=== PATIENT | female | born 1965 | race Caucasian/White ===

== ENCOUNTER → 2021-07-16 09:01 | Outpatient (CLI) | payer OTHER, SELFPAY ==
[2021-07-16 18:38] LABS: Add Manual Diff / Slide Review NO; Basophils Absolute Auto 0 /uL (0-100); Basophils Percent Auto 0.2 % (0-2); Eosinophils Absolute Auto 200 /uL (0-450); Eosinophils Percent Auto 3.2 % (2-4); Hematocrit 40.6 % (36-46); Hemoglobin 13.7 g/dL (12.0-16.0); Lymphocytes Absolute Auto 1300 /uL (1100-4500); Mean Corpuscular HGB Conc 33.7 % (30-36); Mean Corpuscular Hemoglobin 28.4 PG (26-34); Mean Corpuscular Volume 84.4 fL (80-100); Monocytes Absolute Auto 300 /uL (0-900); Monocytes Percent Auto 5.2 % (3-14); Neutrophils Absolute Auto 3600 /uL (1500-7000); Neutrophils Percent Auto 67.4 % (50-75); Platelet Count 249 X10^3/uL (150-400); Red Blood Cell Count 4.81 X10^6/uL (4.0-5.2); Red Cell Distribution Width 13.8 % (11.6-14.8); White Blood Cell Count 5.3 X10^3/uL (4.5-11.0)
[2021-07-16 18:55] LABS: Alanine Aminotransferase 45 IU/L (<35); Albumin 3.9 g/dL (3.5-5.0); Albumin Globulin Ratio 1.3 (1.0-2.8); Alkaline Phosphatase 102 U/L (38-126); Aspartate Aminotransferase 33 IU/L (14-36); Bilirubin Total 0.5 mg/dL (0.2-1.3); Blood Urea Nitrogen 17 mg/dL (7-17); Calcium 9.4 mg/dL (8.4-10.2); Carbon Dioxide 31 mmol/L (22-32); Chloride 103 mmol/L (98-107); Cholesterol 171 mg/dL (140-199); Estimated Glomerular Filt Rate > 60.0 mL/min (>60); Glucose 102 mg/dL (70-100); HDL Cholesterol 60 mg/dL (40-60); HEMOLYSIS < 15 (0-50); Hemoglobin A1C% w Est Avg Glu 5.4 % (4.0-6.0); LDL Cholesterol Calculated 94 mg/dL (<100); Potassium 4.3 mmol/L (3.4-5.1); Sodium 140 mmol/L (137-145); Total Protein 6.9 g/dL (6.3-8.2); Triglycerides 87 mg/dL (35-150)
== END ==
PROVIDERS: PCP Physician Assistant; Visit Provider Physician Assistant
DX: E78.5 Hyperlipidemia, unspecified (principal); K76.0 Fatty (change of) liver, not elsewhere classified; K80.21 Calculus of gallbladder without cholecystitis with obstruction; R79.89 Other specified abnormal findings of blood chemistry
CPT/HCPCS: 80053; 80061; 83036; 85025

== ENCOUNTER → 2022-11-05 09:29 | Outpatient (CLI) | payer OTHER, MEDICAID, SELFPAY ==
[2022-11-05 18:56] LABS: Alanine Aminotransferase 89 IU/L (<35); Albumin 4.1 g/dL (3.5-5.0); Albumin Globulin Ratio 1.2 (1.0-2.8); Alkaline Phosphatase 150 U/L (38-126); Aspartate Aminotransferase 45 IU/L (14-36); Bilirubin Total 0.6 mg/dL (0.2-1.3); Blood Urea Nitrogen 20 mg/dL (7-17); Calcium 9.6 mg/dL (8.4-10.2); Carbon Dioxide 30 mmol/L (22-32); Chloride 101 mmol/L (98-107); Estimated Glomerular Filt Rate > 60 mL/min (>60); Globulin 3.3 g/dL (1.7-4.1); Glucose 98 mg/dL (70-100); HEMOLYSIS < 15 (0-50); Potassium 4.4 mmol/L (3.4-5.1); Sodium 136 mmol/L (137-145); Total Protein 7.4 g/dL (6.3-8.2)
== END ==
PROVIDERS: PCP Physician Assistant; Visit Provider Physician Assistant
DX: K76.0 Fatty (change of) liver, not elsewhere classified (principal)
CPT/HCPCS: 80053

== ENCOUNTER → 2023-01-14 08:29 | Outpatient (CLI) | payer OTHER, MEDICAID, SELFPAY ==
--- NOTE | 2023-01-14 08:30 | DIET.OUTPTC ---
Dietary Outpatient Consultation Note Consultation Date: 01/14/2023 58y F with NAFLD attending RD visit for dietary reccs to manage and help with weight loss. Pt in home office, RD in hospital office, pt agrees to telehealth visit via [facility]. Pt has had liver enzyme issues for many years. also has NAFLD. Pt has hx yoyo dieting. 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 Loves food and loves to cook, following mostly Mediterranean diet. Ht: 5'2 Weight in November: 172# Weight Today: 161# Weight goal: 140# (was here in 2014) apple build Food Recall: B: oatmeal plain Sn: protein bar L: broth based soup and 2c veggies D: 8oz protein (chicken or turkey meatloaf), 2c veggies (salad or roasted veggies), variety of herbs and spices Drinks: 3c coffee and water Nutrition Dx: altered nutrition related laboratory values (liver enzymes) r/t undesirable food choices and weight fluctuations aeb pt BMI 30, chronically high LFTs (AST 45, ALT 89), nutrition related knowledge deficit on nutrition factors influencing NAFLD. Interventions: 1. Reviewed efficacy of Mediterranean Diet in regaining healthy liver enzymes. Reviewed dietary principles and aligning pts current diet to better fit reccs. 2. Discussed free fructose intake's influence in NAFLD. Reviewed sources of free fructose and those to avoid (HFCS, agave nectar, apples). 3. Counselled pt on mcc maintenance for weight management to stop cycle of yoyo dieting including allowing weekly intake pasta and rice without guilt, weekly weights to catch weight gain before it exceeds +5#. F/u prn Electronically Signed by: Tri Diaz 01/14/23 08:30 Clinical Dietitian [address] [address]
== END ==
PROVIDERS: PCP Physician Assistant; Referring Provider Physician Assistant; Visit Provider Physician Assistant
DX: K76.0 Fatty (change of) liver, not elsewhere classified (principal); Z71.3 Dietary counseling and surveillance; E78.5 Hyperlipidemia, unspecified; Z68.30 Body mass index [BMI] 30.0-30.9, adult; E66.9 Obesity, unspecified
CPT/HCPCS: 97802

== ENCOUNTER → 2024-02-21 09:58 | Outpatient (CLI) | payer OTHER, SELFPAY ==
[2024-02-21 20:20] LABS: Add Manual Diff / Slide Review NO; Basophils Absolute Auto 0 /uL (0-100); Basophils Percent Auto 0.8 % (0-2); Eosinophils Absolute Auto 100 /uL (0-450); Eosinophils Percent Auto 2.6 % (2-4); Hematocrit 41.7 % (36-46); Hemoglobin 14.2 g/dL (12.0-16.0); Lymphocytes Absolute Auto 1700 /uL (1100-4500); Lymphocytes Percent Auto 37.3 % (25-40); Mean Corpuscular HGB Conc 34.1 % (30-36); Mean Corpuscular Hemoglobin 28.4 PG (26-34); Mean Corpuscular Volume 83.3 fL (80-100); Monocytes Absolute Auto 200 /uL (0-900); Monocytes Percent Auto 4.8 % (3-14); Neutrophils Absolute Auto 2500 /uL (1500-7000); Neutrophils Percent Auto 54.5 % (50-75); Platelet Count 255 X10^3/uL (150-400); Red Blood Cell Count 5.01 X10^6/uL (4.0-5.2); Red Cell Distribution Width 14.1 % (11.6-14.8); White Blood Cell Count 4.6 X10^3/uL (4.5-11.0)
[2024-02-21 20:29] LABS: Alanine Aminotransferase 72 IU/L (<35); Albumin 4.4 g/dL (3.5-5.0); Albumin Globulin Ratio 1.6 (1.0-2.8); Alkaline Phosphatase 109 U/L (38-126); Aspartate Aminotransferase 42 IU/L (14-36); BUN Creatinine Ratio 28.1 (6-22); Bilirubin Total 0.9 mg/dL (0.2-1.3); Blood Urea Nitrogen 18 mg/dL (7-17); Calcium 9.2 mg/dL (8.4-10.2); Carbon Dioxide 26 mmol/L (22-32); Chloride 106 mmol/L (98-107); Cholesterol 224 mg/dL (140-199); Estimated Glomerular Filt Rate > 60 mL/min (>60); Globulin 2.8 g/dL (1.7-4.1); Glucose 115 mg/dL (80-110); HDL Cholesterol 67 mg/dL (40-60); LDL Cholesterol Calculated 128 mg/dL (<100); Sodium 137 mmol/L (137-145); Total Protein 7.2 g/dL (6.3-8.2); Triglycerides 146 mg/dL (35-150)
[2024-02-21 20:31] LABS: HEMOLYSIS 83 (0-50)
[2024-02-21 20:32] LABS: Potassium 5.3 mmol/L (3.4-5.1)
[2024-02-21 20:49] LABS: Thyroid Stimulating Hormone 2.63 uIU/mL (0.47-4.68)
== END ==
PROVIDERS: PCP Family Medicine; Visit Provider Family Medicine
DX: K75.81 Nonalcoholic steatohepatitis (NASH) (principal); E78.5 Hyperlipidemia, unspecified; R03.0 Elevated blood-pressure reading, without diagnosis of hypertension
CPT/HCPCS: 80053; 80061; 84443; 85025

== ENCOUNTER → 2024-06-15 11:22 | Outpatient (CLI) | payer BC, SELFPAY ==
--- NOTE | 2024-06-15 11:24 | DI.MG.S_ITS ---
BILATERAL DIGITAL SCREENING MAMMOGRAM 3D/2D WITH CAD: 06/15/2024 CLINICAL: Routine screening. Family history of breast cancer. Comparison is made to exams dated: 05/12/2023 mammogram, 02/04/2022 mammogram, 10/28/2020 mammogram, 09/26/2019 mammogram, and 07/26/2018 mammogram - out side. There are scattered areas of fibroglandular density (category b / 25%-50% glandular tissue). Current study was also evaluated with a Computer Aided Detection (CAD) system. There are biopsy clips in the right breast. No significant masses, calcifications, or other findings are seen in either breast. There has been no significant interval change. IMPRESSION: BENIGN There is no mammographic evidence of malignancy. A 1 year screening mammogram is recommended. Based on the Tyrer Cuzick model (a risk assessment model) the patient's lifetime risk is 17.4% and her 10 year risk is 7.7%. According to the ACR, ACS, and NCCN guidelines, an annual breast MRI exam along with mammogram is recommended if the patient's lifetime risk is 20% or greater. This exam was interpreted at Station ID: [id number]. NOTE: For mammograms, a report in lay terms will be sent to the patient. Approximately 15% of breast malignancies will not be visualized mammographically. In the management of a palpable breast mass, a negative mammogram must not discourage biopsy of a clinically suspicious lesion. Electronically Signed By: Nuvia Trinh M.D., Ph.D. cruz/mu:06/16/2024 09:52:35 letter sent: Normal Exam ACR BI-RADS Category 2: Benign
== END ==
PROVIDERS: PCP Family Medicine; Referring Provider Family Medicine; Visit Provider Family Medicine
DX: Z12.31 Encounter for screening mammogram for malignant neoplasm of breast (principal); Z80.3 Family history of malignant neoplasm of breast
CPT/HCPCS: 77063; 77067

== ENCOUNTER → 2024-07-19 10:58 | Outpatient (CLI) | payer BC, SELFPAY ==
[2024-07-19 19:25] LABS: Alanine Aminotransferase 62 IU/L (<35); Albumin 4.2 g/dL (3.5-5.0); Albumin Globulin Ratio 1.5 (1.0-2.8); Alkaline Phosphatase 115 U/L (38-126); Aspartate Aminotransferase 36 IU/L (14-36); BUN Creatinine Ratio 31.5 (6-22); Bilirubin Total 0.7 mg/dL (0.2-1.3); Blood Urea Nitrogen 23 mg/dL (7-17); Calcium 9.8 mg/dL (8.4-10.2); Carbon Dioxide 31 mmol/L (22-32); Chloride 100 mmol/L (98-107); Estimated Glomerular Filt Rate > 60 mL/min (>60); Globulin 2.8 g/dL (1.7-4.1); Glucose 102 mg/dL (80-110); HEMOLYSIS < 15 (0-50); Hemoglobin A1C% w Est Avg Glu 5.7 % (4.0-6.0); Potassium 4.1 mmol/L (3.4-5.1); Sodium 136 mmol/L (137-145)
[2024-07-19 19:36] LABS: LDL Cholesterol Direct 86 mg/dL (<100)
== END ==
PROVIDERS: PCP Family Medicine; Visit Provider Family Medicine
DX: I10 Essential (primary) hypertension (principal); R73.01 Impaired fasting glucose; E78.5 Hyperlipidemia, unspecified; R79.89 Other specified abnormal findings of blood chemistry
CPT/HCPCS: 80053; 83036; 83721

== ENCOUNTER → 2024-08-28 10:42 | Outpatient (CLI) | payer BC, SELFPAY ==
--- NOTE | 2024-08-28 10:43 | DI.MRI.S_ITS ---
BREAST MRI OF BOTH BREASTS: 08/28/2024 CLINICAL: High risk. TECHNIQUE: The patient was placed prone in a dedicated breast imaging coil. Precontrast axial STIR and 3D FLASH without fat saturation sequences were obtained. Both before and after bolus injection of contrast, sequential 1-minute axial 3D FLASH with fat saturation sequences for 3 time points, with subtraction images and maximum intensity projections (MIP's) generated. Delayed sagittal FLASH images with fat saturation were also obtained. Computer-aided detection, including computer algorithm analysis of MRI image data for lesion detection and characterization, pharmacokinetic analysis, with further physician review for interpretation, was performed. COMPARISON: Outside Facility, MG, MM SCREENING MAMMO BI, 02/04/2022, 14:33. Outside [facility], , MM SCREENING MAMMO BI, 05/12/2023, 16:54. [facility], MG, MM SCREENING MAMMO BI, 06/15/2024, 11:43. FINDINGS: Image quality: Diagnostic. There is mild background parenchymal enhancement. Heterogeneously dense fibroglandular tissue in the bilateral breast. Right breast: No suspicious mass, non-mass enhancement, or architectural distortion. No skin or nipple abnormalities. No axillary or internal mammary chain adenopathy. Left breast: There is a stable oval, circumscribed enhancing mass in the middle depth of the upper, outer quadrant of the left breast measuring approximately 1.2 x 1.0 cm in axial cross-sectional dimension (64/series 11) and approximately 1.1 cm in craniocaudal dimension (87/series 19). This mass is noted approximately 6 cm from the nipple. This demonstrates T2 hyperintensity and persistent delayed phase kinetics. This correlates with mammography findings which has remained stable for several years. Likely represents a benign fibroadenoma. There is also a heterogeneously enhancing irregular mass noted slightly anterior and superior to this oval mass at approximately the 12 o'clock position middle depth measuring approximately 1.2 x 0.7 cm in axial cross-sectional dimension (79/series 11) and approximately 1.2 cm in craniocaudal dimension (65/series 11). This is noted approximately 7 cm from the nipple. This lesion is not definitively visualized mammographically. This mass demonstrates mixed delayed phase enhancement kinetics to include washout kinetics. This lesion demonstrates mild T2 hyperintensity. Otherwise, no other mass lesions identified. No skin or nipple abnormalities. No axillary or internal mammary chain adenopathy. Miscellaneous: Visualized portions of the upper abdomen and chest appear unremarkable. IMPRESSION: INCOMPLETE: NEED ADDITIONAL IMAGING EVALUATION 1. Irregular, heterogeneously enhancing 1.2 x 0.7 x 1.2 cm mass versus focal non-mass enhancement involving the 12 o'clock position middle depth (approximately 7 cm from nipple) with associated mixed delayed phase enhancement kinetics. Findings are indeterminate. Recommend further evaluation with diagnostic mammogram and targeted left breast ultrasound. 2. Stable 1.2 cm oval enhancing mass in the left breast upper, outer quadrant at a middle depth which correlates with stable mass seen on comparison mammograms over several years. It demonstrates imaging characteristics most consistent with a fibroadenoma. Its stability over time is consistent with a benign process. However, this can be evaluated during targeted left breast ultrasound of the above described 12 o'clock abnormality. 3. Right breast without sonographic evidence for malignancy. COMMENT: The imaging literature indicates that a negative contrast breast MRI examination has a high sensitivity and a moderate specificity for detecting and excluding invasive carcinomas to a detection threshold of 3-5 mm; nonetheless, appropriate clinical and mammographic follow-up are recommended. MRI is not sensitive for detecting DCIS (ductal carcinoma in situ) and may not detect large invasive neoplasms that show only minimal enhancement such as mucinous carcinoma. If there are suspicious calcifications or clinically worrisome palpable masses, then biopsy should still be considered. Invasive neoplasms can be hidden by co-existent and benign enhancement caused by mastitis, hormone therapy effects, radiation therapy, , and recent biopsy or surgery. False positive examinations can occur in a number of circumstances, including breasts that have recently been subject to invasive procedures and those that contain atypical ductal hyperplasia, hormonally stimulated glandular tissue, fat necrosis, or radial scars. This exam was interpreted at Station ID: [id number]. Electronically Signed By: Alonzo Gaines M.D. aty/:08/28/2024 21:56:26 letter sent: Additional Imaging Needed ACR BI-RADS Category 0: Incomplete: Need Additional Imaging Evaluation
== END ==
LOC: MRI 10:42
PROVIDERS: PCP Family Medicine; Referring Provider Family Medicine; Visit Provider Family Medicine
DX: Z12.39 Encounter for other screening for malignant neoplasm of breast (principal); N63.21 Unspecified lump in the left breast, upper outer quadrant; N63.25 Unspecified lump in the left breast, overlapping quadrants; R92.30 Dense breasts, unspecified; Z98.890 Other specified postprocedural states; Z80.3 Family history of malignant neoplasm of breast
CPT/HCPCS: 77049; A9579

== ENCOUNTER → 2024-09-28 10:07 | Outpatient (CLI) | payer BC, SELFPAY ==
--- NOTE | 2024-09-28 10:09 | DI.MG.S_ITS ---
UNILATERAL LEFT DIGITAL DIAGNOSTIC MAMMOGRAM 3D/2D: 09/28/2024 CLINICAL: Additional evaluation requested from prior study. Comparison is made to exams dated: 06/15/2024 mammogram - [facility], 05/12/2023 mammogram, 02/04/2022 mammogram - out side, and 08/28/2024 breast MRI - [facility]. There are scattered areas of fibroglandular density (category b / 25%-50% glandular tissue). There is a stable oval mass with an obscured margin in the left breast at 1 o'clock middle depth. This correlates with breast mass seen in the middle depth of the left breast upper outer quadrant No other significant masses or calcifications are seen in the breast. IMPRESSION: INCOMPLETE: NEED ADDITIONAL IMAGING EVALUATION The stable oval mass in the left breast most likely is a fibroadenoma and is benign. There is no abnormality seen in the left breast to correspond with the breast MRI finding at 12 o'clock in the middle depth, however, ultrasound is recommended for further evaluation and is scheduled to immediately follow this examination. Based on the Tyrer Cuzick model (a risk assessment model) the patient's lifetime risk is 17.4% and her 10 year risk is 7.7%. According to the ACR, ACS, and NCCN guidelines, an annual breast MRI exam along with mammogram is recommended if the patient's lifetime risk is 20% or greater. This exam was interpreted at Station ID: [id number]. NOTE: For mammograms, a report in lay terms will be sent to the patient. Approximately 15% of breast malignancies will not be visualized mammographically. In the management of a palpable breast mass, a negative mammogram must not discourage biopsy of a clinically suspicious lesion. Electronically Signed By: Alonzo Gaines M.D. aty/:09/28/2024 13:23:03 letter sent: Additional Imaging Needed ACR BI-RADS Category 0: Incomplete: Need Additional Imaging Evaluation
--- NOTE | 2024-09-28 10:09 | DI.US.S_ITS ---
ULTRASOUND OF LEFT BREAST AND AXILLA: 09/28/2024 CLINICAL: Patient returns today to evaluate two focal asymmetries in the left breast. Comparison is made to exams dated: 09/28/2024 mammogram, 08/28/2024 breast MRI, 06/15/2024 mammogram - [facility], 05/12/2023 mammogram, 02/04/2022 mammogram, and 10/28/2020 mammogram - out side. Color flow and real-time ultrasound of the left breast axilla were performed. Oliveira scale images of the real-time examination were reviewed. There is a 1.4 cm x 0.6 cm x 0.7 cm irregular mass with an indistinct margin in the left breast at 12 o'clock middle depth 4 cm from the nipple. This irregular mass is hypoechoic with posterior acoustic shadowing. This correlates with breast MRI findings but was not seen on the prior mammogram. Color flow imaging demonstrates that there is vascularity present. There also is a stable benign 1.1 cm x 1 cm x 1 cm oval mass with a circumscribed margin in the left breast at 1 o'clock middle depth 6 cm from the nipple. This oval mass is hypoechoic with no posterior acoustic shadowing or enhancement. This correlates with mammography and breast MRI findings. Color flow imaging demonstrates that there is vascularity present. No significant abnormalities were seen sonographically in the left axilla. IMPRESSION: SUSPICIOUS The 1.4 cm x 0.6 cm x 0.7 cm irregular mass in the left breast at 12 o'clock middle depth is suspicious of malignancy. An ultrasound guided biopsy is recommended. The stable 1.1 cm x 1 cm x 1 cm oval mass in the left breast at 1 o'clock middle depth most likely is a fibroadenoma and is benign. No sonographic abnormalities identified in the axilla. No axillary adenopathy. Findings and recommendations were discussed with the patient by Dr. Gaines via telephone during today's examination. This exam was interpreted at Station ID: [id number]. Electronically Signed By: Alonzo Gaines M.D. aty/:09/28/2024 14:46:13 letter sent: Biopsy Required ACR BI-RADS Category 4: Suspicious
== END ==
PROVIDERS: PCP Family Medicine; Referring Provider Family Medicine; Visit Provider Family Medicine
DX: R92.8 Other abnormal and inconclusive findings on diagnostic imaging of breast (principal); N63.25 Unspecified lump in the left breast, overlapping quadrants; N63.21 Unspecified lump in the left breast, upper outer quadrant
CPT/HCPCS: 76642; 77065; G0279

== ENCOUNTER → 2024-10-16 10:14 | Outpatient (CLI) | payer BC, SELFPAY ==
--- NOTE | 2024-10-16 | PATH_ITS ---
[facility] Accession Number: [id number] . 01 Material submitted: . breast - LEFT BREAST 12:00 4 CM FN . 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 -Architectural patterns: Solid, cribriform. -Nuclear grade: Low. -Necrosis: Absent. -Associated calcifications: Absent. -Additional findings: Background apocrine metaplasia. -Biomarkers: -ER: Positive (100%, strong). -MO: Positive (75%, strong). [facility] [place] 10/19/2024 1556 Local . 01 Comment: Sections show foci of ductal carcinoma in situ (DCIS) both involving and independent of an intraductal papilloma. The DCIS in the tissue separate from the papilloma does not show invasion (supported by positive p63, positive myosin, and negative CK CHEN immunohistochemistry performed on block A1 with appropriately staining controls), however the papilloma and its associated DCIS is extensively fragmented and invasion within these fragments cannot be definitely excluded. . This case has been reviewed by Dr. Aguilar, who agrees with the above interpretation. . Technical Note: The immunohistochemical stains reported were performed at [facility] ([address], [facility] [address]). This test was developed, and the performance characteristics were validated by [facility]. It has not been cleared or approved by the Food and Drug Administration. . 01 Electronically signed: . Solange Grigsby DO, Pathologist NPI- [id number] . 01 Gross description: . Received in formalin with two patient identifiers and left breast 12 o'clock 4 cm FN, are multiple yellow to rocha soft tissue fragments admixed with hemorrhagic material aggregating to 2.5 x 1.0 x 0.3 cm. Filtered and submitted in A1. . Specimen was removed on 10/16/2024, time not provided. Cold ischemic time cannot be calculated. Total fixation time is approximately 31 hours. ([id number]) /MRV 10/17/2024 1514 Local . 01 Pathologist provided ICD-10: R92.8 . 01 CPT . 240256, E76431, W62026, 666224 Performed at: [address] [facility], [place], [place] [id number] MD Angelito Clemens MD Phone: [phone]
--- NOTE | 2024-10-16 10:16 | DI.MG.S_ITS ---
UNILATERAL LEFT DIGITAL DIAGNOSTIC MAMMOGRAM 3D/2D POST-EXCISIONAL BIOPSY: 10/16/2024 CLINICAL: Post left breast ultrasound biopsy, clip placement imaging. Comparison is made to exams dated: 09/28/2024 mammogram, 08/28/2024 breast MRI, 06/15/2024 mammogram - [facility], 05/12/2023 mammogram - out side, 09/28/2024 ultrasound, and 10/16/2024 ultrasound biopsy - [facility]. There are scattered areas of fibroglandular density (category b / 25%-50% glandular tissue). There is a marker clip in the appropriate position in the left breast at 12 o'clock middle depth at the biopsy site. IMPRESSION: POST PROCEDURE MAMMOGRAM FOR MARKER PLACEMENT There was a successful marker clip placement in the left breast middle depth. This exam was interpreted at Station ID: [id number]. Electronically Signed By: Damon Garcia M.D. slc/:10/17/2024 08:09:56 ACR BI-RADS Category Post-Procedure Mammogram for Marker Placement
--- NOTE | 2024-10-16 10:16 | DI.US.S_ITS ---
ULTRASOUND GUIDED BIOPSY LEFT BREAST WITH MARKING DEVICE INSERTED: 10/16/2024 CLINICAL: Left ultrasound guided biopsy. PATIENT CONSENT: Risks (minor bleeding, infection, vasovagal reaction and repeat procedure), benefits and alternatives were explained to the patient and written informed consent was obtained. Correlation is made to exams dated: 10/16/2024 mammogram, 09/28/2024 ultrasound, 09/28/2024 mammogram, 08/28/2024 breast MRI, 06/15/2024 mammogram - [facility], and 05/12/2023 mammogram - out [facility]. An ultrasound guided biopsy using real-time ultrasound was performed for the mass located in the left breast at 12 o'clock middle depth 4 cm from the nipple. The skin was prepped in the usual manner. Local anesthetic was administered to the access site. A skin emily was made in the breast. The abnormality was approached from the lateral aspect. A 14 gauge biopsy needle was placed adjacent to the abnormality under ultrasound guidance. Once the needle was documented to be in the correct location, five specimens were obtained using BARD Elevation biopsy device. A Vision clip was inserted into the biopsy cavity. A sterile dressing was applied to the access site. Post procedure imaging demonstrates the biopsy clip in the expected region. The specimens were sent to the laboratory for pathological analysis. Biopsy procedure was performed by Dr. Roblero on 10/16/2024. IMPRESSION: ULTRASOUND GUIDED BIOPSY MALIGNANT Successful ultrasound guided biopsy of left breast mass at 12 o'clock, 4 cm from the nipple performed by Dr. Roblero. Pathology indicates malignant ductal carcinoma in situ (DCIS). Pathology results are concordant with imaging findings. A surgical/oncologic consultation is recommended. This exam was interpreted at Station ID: [id number]. Nuvia Trinh M.D., Ph.D. eb/:10/24/2024 15:13:23
== END ==
PROVIDERS: PCP Family Medicine; Referring Provider Family Medicine; Visit Provider Family Medicine
DX: D05.12 Intraductal carcinoma in situ of left breast (principal); R92.8 Other abnormal and inconclusive findings on diagnostic imaging of breast; Z80.3 Family history of malignant neoplasm of breast; Z98.890 Other specified postprocedural states
CPT/HCPCS: 19083; 77065

== ENCOUNTER → 2025-02-05 13:05 | Outpatient (CLI) | payer BC, SELFPAY ==
[2025-02-05 19:21] LABS: Add Manual Diff / Slide Review NO; Basophils Absolute Auto 0 /uL (0-100); Basophils Percent Auto 0.4 % (0-2); Eosinophils Absolute Auto 100 /uL (0-450); Eosinophils Percent Auto 2.2 % (2-4); Hematocrit 41.8 % (36-46); Hemoglobin 14.3 g/dL (12.0-16.0); Lymphocytes Absolute Auto 1200 /uL (1100-4500); Lymphocytes Percent Auto 25.6 % (25-40); Mean Corpuscular HGB Conc 34.2 % (30-36); Mean Corpuscular Hemoglobin 28.7 PG (26-34); Mean Corpuscular Volume 83.8 fL (80-100); Monocytes Absolute Auto 200 /uL (0-900); Monocytes Percent Auto 5.2 % (3-14); Neutrophils Absolute Auto 3000 /uL (1500-7000); Neutrophils Percent Auto 66.6 % (50-75); Platelet Count 292 X10^3/uL (150-400); Red Blood Cell Count 4.99 X10^6/uL (4.0-5.2); Red Cell Distribution Width 13.9 % (11.6-14.8); White Blood Cell Count 4.6 X10^3/uL (4.5-11.0)
[2025-02-05 19:29] LABS: Alanine Aminotransferase 92 IU/L (<35); Albumin 4.5 g/dL (3.5-5.0); Albumin Globulin Ratio 1.5 (1.0-2.8); Alkaline Phosphatase 161 U/L (38-126); Aspartate Aminotransferase 57 IU/L (14-36); BUN Creatinine Ratio 28.2 (6-22); Bilirubin Total 0.6 mg/dL (0.2-1.3); Blood Urea Nitrogen 20 mg/dL (7-17); Calcium 9.8 mg/dL (8.4-10.2); Carbon Dioxide 32 mmol/L (22-32); Chloride 98 mmol/L (98-107); Estimated Glomerular Filt Rate > 60 mL/min (>60); Glucose 91 mg/dL (70-99); HEMOLYSIS 23 (0-50); Potassium 4.1 mmol/L (3.4-5.1); Sodium 137 mmol/L (137-145); Total Protein 7.5 g/dL (6.3-8.2)
[2025-02-05 19:30] LABS: Hemoglobin A1C% w Est Avg Glu 5.5 % (4.0-6.0)
== END ==
PROVIDERS: PCP Family Medicine; Visit Provider Family Medicine
DX: R73.01 Impaired fasting glucose (principal); I10 Essential (primary) hypertension; K75.81 Nonalcoholic steatohepatitis (NASH); E78.5 Hyperlipidemia, unspecified; R79.89 Other specified abnormal findings of blood chemistry
CPT/HCPCS: 80053; 83036; 85025

== ENCOUNTER → 2025-04-19 11:49 | Outpatient (CLI) | payer BC, SELFPAY ==
[2025-04-19 19:47] LABS: Add Manual Diff / Slide Review NO; Hematocrit 38.9 % (36-46); Hemoglobin 13.2 g/dL (12.0-16.0); Lymphocytes Absolute Auto 1400 /uL (1100-4500); Mean Corpuscular HGB Conc 34.1 % (30-36); Mean Corpuscular Hemoglobin 28.7 PG (26-34); Mean Corpuscular Volume 84.3 fL (80-100); Platelet Count 304 X10^3/uL (150-400)
[2025-04-19 20:06] LABS: HEMOLYSIS < 15 (0-50); Iron 63 ug/dL (37-170)
[2025-04-19 20:09] LABS: Alanine Aminotransferase 105 IU/L (<35); Albumin 4.1 g/dL (3.5-5.0); Albumin Globulin Ratio 1.5 (1.0-2.8); Alkaline Phosphatase 141 U/L (38-126); Blood Urea Nitrogen 23 mg/dL (7-17); Calcium 9.8 mg/dL (8.4-10.2); Carbon Dioxide 31 mmol/L (22-32); Chloride 101 mmol/L (98-107); Estimated Glomerular Filt Rate > 60 mL/min (>60); Globulin 2.8 g/dL (1.7-4.1); Glucose 93 mg/dL (70-99); HEMOLYSIS 17 (0-50); Potassium 3.9 mmol/L (3.4-5.1); Sodium 138 mmol/L (137-145); Total Protein 6.9 g/dL (6.3-8.2)
[2025-04-19 20:21] LABS: Percent Iron Saturation 20 % (15-50); Total Iron Binding Capacity 322 ug/dL (265-497); Transferrin 271 mg/dL (206-381)
== END ==
PROVIDERS: PCP Family Medicine; Visit Provider Student in an Organized Health Care Education/Training Program
DX: D05.12 Intraductal carcinoma in situ of left breast (principal)
CPT/HCPCS: 80053; 83540; 83550; 85025

== ENCOUNTER → 2025-07-23 10:59 | Outpatient (CLI) | payer BC, SELFPAY ==
[2025-07-23 19:02] LABS: Alanine Aminotransferase 96 IU/L (<35); Albumin 4.5 g/dL (3.5-5.0); Albumin Globulin Ratio 1.6 (1.0-2.8); Alkaline Phosphatase 147 U/L (38-126); Blood Urea Nitrogen 19 mg/dL (7-17); Calcium 9.9 mg/dL (8.4-10.2); Carbon Dioxide 29 mmol/L (22-32); Chloride 97 mmol/L (98-107); Estimated Glomerular Filt Rate > 60 mL/min (>60); Globulin 2.9 g/dL (1.7-4.1); Glucose 103 mg/dL (70-99); HEMOLYSIS < 15 (0-50); Potassium 4.0 mmol/L (3.4-5.1); Sodium 135 mmol/L (137-145); Total Protein 7.4 g/dL (6.3-8.2)
== END ==
PROVIDERS: PCP Family Medicine; Visit Provider Family Medicine
DX: I10 Essential (primary) hypertension (principal); E78.5 Hyperlipidemia, unspecified; K75.81 Nonalcoholic steatohepatitis (NASH)
CPT/HCPCS: 80053; 83721